=== PATIENT | male | born 1990 | race African-American/Black ===

== ENCOUNTER 2019-01-11 04:48 | Emergency (ER) | payer MEDICAID ==
[~2019-01-11] VITALS: Ht 177.8 cm; Wt 83.9 kg
[2019-01-11 04:55] VITALS: BP 139/83
[2019-01-11] MEDS ORDERED: predniSONE 20 MG TABLET ONE (05:45)
[2019-01-11] MEDS: predniSONE 20 MG TABLET PO ONE (05:55)
== END 2019-01-11 06:06 | disposition home or self-care (01) ==
LOC: ER 04:48
DX: J40 Bronchitis, not specified as acute or chronic (principal); F17.200 Nicotine dependence, unspecified, uncomplicated
CPT/HCPCS: 71045; 99283; 99406; A4606; J7512